=== PATIENT | male | born 1990 | race Two or more races ===

== ENCOUNTER → 2019-11-16 | Emergency (ER) | payer SELFPAY ==
[~2019-11-16] VITALS: Ht 177.8 cm; Wt 90.7 kg
[~2019-11-16] MED LIST: BACITRACIN INJ 50000 UNIT VIAL TOP ONE; BACITRACIN TOP OINT 1 UD PKG TOP ONE; IOHEXOL 300 MG/ML 100ML BOTTLE IJ ONE; LIDOCAINE W/ EPINEPHRINE 1 % INJ 30ML ONE; LIDOCAINE W/ EPINEPHRINE 1% 20ML VIAL ONE; LIDOCAINE W/ EPINEPHRINE 1% 20ML VIAL SC ONE; MORPHINE SULF INJ 2 MG/ML SYRINGE 1ML IV ONE; ONDANSETRON HCL 4 MG/2 ML VIAL IV ONE; SODIUM CHLORIDE 0.9% 1,000 ML IV ONE; TETANUS-DIPTH-ACEL PERTUSSIS 0.5ML SYR Tdap IM ONE; cefTRIAXone 1GM/50ML D5W 50 ML IV ONE
[2019-11-16 19:36] LABS: Basophils # (auto) 0 10 ^3/uL (0-0.2); Basophils % (auto) 0.4 % (0.0-2.0); Eosinophils # (auto) 0 10 ^3/uL (0-0.8); Eosinophils % (auto) 0.4 % (0.0-7.0); Hematocrit 46.4 % (41.0-53.0); Hemoglobin 15.8 g/dL (13.5-17.5); Lymphocytes % (auto) 19.2 % (10.0-50.0); Mean Corpuscular Hemoglobin 30.1 pg (28.0-32.0); Mean Corpuscular Hgb Conc. 34.1 g/dL (32.0-36.0); Mean Corpuscular Volume 88.1 fL (80.0-100.0); Monocytes # (auto) 0.8 10 ^3/uL (0-1.3); Monocytes % (auto) 7.4 % (0.0-12.0); Neutrophils # (auto) 7.6 10 ^3/uL (1.6-8.6); Neutrophils % (auto) 72.6 % (37.0-80.0); Nucleated Red Blood Cells % 0.1 %; Platelet Count (auto) 226 10^3/uL (140-450); Red Blood Cells 5.27 10^6/uL (4.5-5.90); Red Cell Distribution Width 13.3 % (11.8-14.3); White Blood Cell 10.4 10^3/uL (4.4-10.8)
[2019-11-16 19:49] LABS: INR 1.02 (0.9-1.15); Partial Thromboplastin Time 24.4 sec (23.64-32.05)
[2019-11-16 19:53] LABS: Alanine Aminotransferase 92 U/L (16-61); Albumin 3.7 g/dL (3.4-5.0); Anion Gap 6 (5-15); Aspartate Aminotransferase 36 U/L (15-37); BUN/Creatinine Ratio 8.9; Blood Urea Nitrogen 11 mg/dL (7-18); Calcium 8.3 mg/dL (8.5-10.1); Carbon Dioxide 26 mmol/L (21-32); Chloride 109 mmol/L (98-107); GFR African American 89 mL/min; GFR Non-African American 74 mL/min; Glucose 128 mg/dL (74-106); Magnesium 2.2 mg/dL (1.6-2.6); Potassium 3.7 mmol/L (3.5-5.1); Sodium 141 mmol/L (136-145)
[2019-11-16 19:58] LABS: Alkaline Phosphatase 113 U/L (45-117); Bilirubin, Total 0.4 mg/dL (0.2-1.0); Total Protein 7.5 g/dL (6.4-8.2)
[2019-11-16 21:00] VITALS: BP 137/77
== END | disposition home or self-care (01) ==
LOC: ER 18:25 → EDBD 18:25
DX: S22.42XA Multiple fractures of ribs, left side, initial encounter for closed fracture (principal); S71.112A Laceration without foreign body, left thigh, initial encounter; S30.1XXA Contusion of abdominal wall, initial encounter; V86.59XA Driver of other special all-terrain or other off-road motor vehicle injured in nontraffic accident, initial encounter; Y93.89 Activity, other specified; Y92.89 Other specified places as the place of occurrence of the external cause; Y99.8 Other external cause status
CPT/HCPCS: 12005; 36415; 70450; 71260; 72125; 74177; 80053; 83735; 83880; 84443; 84484; 85025; 85379; 85610; 85730; 90471; 90715; 93005; 96365; 96372; 96375; 99285; J0696; J2001; J2270; J2405; Q9967

== ENCOUNTER 2019-11-28 15:03 | Inpatient (IN) | payer MEDICAID, OTHER ==
[~2019-11-28] VITALS: Ht 170.2 cm; Wt 105.6 kg
[2019-11-28] MEDS ORDERED: cefTRIAXone 1GM/50ML D5W 50 ML IV ONE (15:30)
[2019-11-28] MEDS ORDERED: CLINDAMYCIN 600MG IV 50 ML IV ONE (15:30)
[2019-11-28] MEDS ORDERED: IOHEXOL 350 MG/ML 100ML IJ ONE (16:03)
[2019-11-28 16:22] LABS: Basophils # (auto) 0 10 ^3/uL (0-0.2); Basophils % (auto) 0.3 % (0.0-2.0); Eosinophils # (auto) 0.1 10 ^3/uL (0-0.8); Eosinophils % (auto) 0.9 % (0.0-7.0); Hematocrit 47.2 % (41.0-53.0); Hemoglobin 15.7 g/dL (13.5-17.5); Lymphocytes # (auto) 2.1 10 ^3/uL (0.4-5.4); Lymphocytes % (auto) 26.7 % (10.0-50.0); Mean Corpuscular Hemoglobin 29.7 pg (28.0-32.0); Mean Corpuscular Hgb Conc. 33.2 g/dL (32.0-36.0); Mean Corpuscular Volume 89.4 fL (80.0-100.0); Monocytes # (auto) 0.5 10 ^3/uL (0-1.3); Monocytes % (auto) 6.4 % (0.0-12.0); Neutrophils # (auto) 5.1 10 ^3/uL (1.6-8.6); Neutrophils % (auto) 65.7 % (37.0-80.0); Platelet Count (auto) 355 10^3/uL (140-450); Red Blood Cells 5.28 10^6/uL (4.5-5.90); Red Cell Distribution Width 13.5 % (11.8-14.3); White Blood Cell 7.7 10^3/uL (4.4-10.8)
[2019-11-28 16:28] LABS: Albumin 3.7 g/dL (3.4-5.0); BUN/Creatinine Ratio 10.3; Calcium 8.8 mg/dL (8.5-10.1); Potassium 3.4 mmol/L (3.5-5.1)
[2019-11-28 16:30] LABS: Bilirubin, Total 0.6 mg/dL (0.2-1.0); Total Protein 8.1 g/dL (6.4-8.2)
[2019-11-28] MEDS ORDERED: LACTATED RINGER'S 1,000 ML IV ONE (18:15)
[2019-11-28] MEDS ORDERED: VANCOMYCIN PER PHARMACY 0 MG IV SCH (18:15)
[2019-11-28] MEDS ORDERED: NITROGLYCERIN 0.4 MG SL TAB SL PRN ×2 (18:15→21:00)
[2019-11-28] MEDS ORDERED: MORPHINE SULF INJ 2 MG/ML SYRINGE 1ML IV PRN ×3 (18:15→21:00)
[2019-11-28] MEDS ORDERED: VANCOMYCIN 1GM/250ML 250 ML IV ONE (18:30)
--- NOTE | 2019-11-28 19:45 | NUR ---
Telemetry admit from [facility] admitted to Telemetry unit. Patient oriented to Reg Singleton, primary RN, unit, room, bed, and unit policies regarding patient care and visiting hours. Patient now on continuous telemetry monitoring, tele box #56 and telemetry reading on arrival to unit is SR 66. Patient has been weighed by bedscale and encouraged to call if they need something. All questions and concerns addressed, patient verbalized understanding.
[2019-11-28] MEDS ORDERED: HYDR1TAB97 (20:29)
[2019-11-28] MEDS ORDERED: CEPH500C PO (20:29)
[2019-11-28] MEDS ORDERED: IBUP800T24 PO (20:29)
[2019-11-28] MEDS ORDERED: HYDROcodone-ACET 5/325MG TAB PO PRN (21:00)
[2019-11-28] MEDS ORDERED: SODIUM CHLORIDE 0.9% 1,000 ML IV SCH (21:00)
[2019-11-28] MEDS ORDERED: LORazepam 0.5 MG TAB PO PRN (21:00)
[2019-11-28] MEDS ORDERED: ONDANSETRON HCL 4 MG/2 ML VIAL IV PRN (21:00)
[2019-11-28] MEDS ORDERED: ACETAMINOPHEN 325 MG TAB PO PRN (21:00)
[2019-11-28] MEDS ORDERED: ALUM & MAG HYDROX-SIMETH LIQ(MAALOX) 30 ML PO PRN (21:00)
[2019-11-28] MEDS ORDERED: POTASSIUM CHL 20 Meq TABLET PO ONE (21:30)
[2019-11-28 22:31] LABS: Creatine Kinase IFCC 76 U/L (39-308)
[2019-11-28] MEDS: SOD CHL 0.9%/ KCL 20MEQ 1,000 ML IV SCH (23:00)
[2019-11-29 05:00] VITALS: BP 133/69
[2019-11-29] MEDS: PIPERACILLIN-TAZOB 3.375GM 100 ML IV SCH ×5 (06:00→23:35)
[2019-11-29 06:14] LABS: Basophils # (auto) 0 10 ^3/uL (0-0.2); Basophils % (auto) 0.6 % (0.0-2.0); Eosinophils # (auto) 0.1 10 ^3/uL (0-0.8); Eosinophils % (auto) 1.3 % (0.0-7.0); Hematocrit 45.7 % (41.0-53.0); Hemoglobin 14.9 g/dL (13.5-17.5); Lymphocytes # (auto) 1.6 10 ^3/uL (0.4-5.4); Lymphocytes % (auto) 24.5 % (10.0-50.0); Mean Corpuscular Hemoglobin 29.3 pg (28.0-32.0); Mean Corpuscular Hgb Conc. 32.6 g/dL (32.0-36.0); Mean Corpuscular Volume 89.9 fL (80.0-100.0); Monocytes # (auto) 0.7 10 ^3/uL (0-1.3); Monocytes % (auto) 9.9 % (0.0-12.0); Neutrophils # (auto) 4.2 10 ^3/uL (1.6-8.6); Neutrophils % (auto) 63.7 % (37.0-80.0); Nucleated Red Blood Cells % 0.1 %; Platelet Count (auto) 311 10^3/uL (140-450); Red Blood Cells 5.08 10^6/uL (4.5-5.90); Red Cell Distribution Width 13.1 % (11.8-14.3); White Blood Cell 6.6 10^3/uL (4.4-10.8)
[2019-11-29 06:30] LABS: Potassium 4.4 mmol/L (3.5-5.1)
[2019-11-29 06:35] LABS: INR 1.05 (0.9-1.15); Partial Thromboplastin Time 28.8 sec (23.0-31.2)
[2019-11-29 06:36] LABS: Albumin 3.3 g/dL (3.4-5.0); BUN/Creatinine Ratio 9.9; Calcium 8.6 mg/dL (8.5-10.1); Magnesium 2.5 mg/dL (1.6-2.6); Phosphorus 3.4 mg/dL (2.5-4.90); Total Protein 7.3 g/dL (6.4-8.2)
[2019-11-29 06:51] LABS: Cholesterol 176 mg/dL (< 200); HDL Cholesterol 25 mg/dL (40-59); LDL Cholesterol 143 mg/dL (< 100); Triglycerides 121 mg/dL (< 150)
[2019-11-29 06:53] LABS: Urine Bacteria NONE SEEN /hpf (None Seen); Urine Blood Negative /uL (Negative); Urine WBC 1 /hpf (0 - 3)
[2019-11-29 06:56] LABS: Alcohol, Urine < 3.0 mg/dL (0-10); Amphetamine Screen, Urine NEGATIVE (NEGATIVE); Barbiturate Scree,Urine NEGATIVE (NEGATIVE); Benzodiazephine Screen, Urine NEGATIVE (NEGATIVE); Cannabinoid Screen, Urine NEGATIVE (NEGATIVE); Cocaine Screen, Urine NEGATIVE (NEGATIVE); Opiate Scree,Urine NEGATIVE (NEGATIVE); Phencyclidine Screen, Urine NEGATIVE (NEGATIVE)
[2019-11-29] MEDS: SOD CHL 0.9%/ KCL 20MEQ 1,000 ML IV SCH (07:35)
--- NOTE | 2019-11-29 07:40 | NUR ---
OPENING SHIFT NOTE ASSUMED PATIENT CARE AND PATIENT NOTED TO BE SLEEPING COMFORTABLY IN BED AND WAS IN NO DISTRESS. PATIENT EASILY AWAKENED AND VOICED NO C/O PAIN OR DISCOMFORT. SHIFT ASSESSMENT DONE AND CHARTED. PLAN OF CARE, MEDICATIONS, TREATMENTS AND SAFETY DISCUSSED WITH PATIENT AND PATIENT VERBALIZED UNDERSTANDING. WILL CONTINUE TO MONITOR PATIENT.
[2019-11-29 09:00] VITALS: BP 102/64
[2019-11-29] MEDS ORDERED: POTASSIUM CHL 20 Meq TABLET PO SCH (10:00)
[2019-11-29] MEDS: VANCOMYCIN 1GM/250ML 250 ML IV SCH ×2 (10:00→21:00)
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
--- NOTE | 2019-11-29 11:00 | NUR ---
MD AT BEDSIDE DR. HANEY WAS IN TO SEE PATIENT AND MD LEFT NEW ORDERS.
--- NOTE | 2019-11-29 12:00 | NUR ---
Nutrition Assessment/consult Notes please see attached link for complete assessment Est energy needs BW [id number] kcal (23-25 kcal/kg BW), Est protein needs: 81-105 g (1.0-1.3g/kg BW r/t wounds). Will reassess prn. Addendum: 11/29/19 at [address] Amended: Links added.
[2019-11-29 13:00] VITALS: BP 121/74
[2019-11-29 16:38] VITALS: BP 131/74
--- NOTE | 2019-11-29 17:00 | NUR ---
PATIENT MADE AWARE OF PLANNED SURGERY TOMORROW AND INSTRUCTED HIM TO BE NPO AFTER MIDNIGHT AND PATIENT VERBALIZED UNDERSTANDING,
[2019-11-29 22:00] VITALS: BP 126/76
--- NOTE | 2019-11-30 00:57 | NUR ---
1899. REPORT OBTAINED ON PATIENT. 1999. PATIENT SEEN. STAYING CALM ON HIS BED. DENIED PAIN. LEFT UPPER ANTERIOR THIGH WOUND VIEWED. DRESSING SOAKED. DIRTY HENDERSON DISCHARGE DRESSING CHANGE DONE.
--- NOTE | 2019-11-30 02:55 | NUR ---
PATIENT HAS BEEN NPO POST MIDNIGHT FOR POSSIBLE SURGICAL DEBRIDMENT LEFT PROXIMAL ANTERIOR THIGH WOUND.. PATIENT WILL SIGN CONSENT ON WAKING UP.
[2019-11-30 05:00] VITALS: BP 98/61
[2019-11-30] MEDS: PIPERACILLIN-TAZOB 3.375GM 100 ML IV SCH (05:57)
--- NOTE | 2019-11-30 07:35 | NUR ---
Opening Note Received report from warehouse shift supervisor RN. Patient is awake, alert and oriented x4. No signs or symptoms of distress noted at this time. Patient denies pain at this time. Patient is NPO for possible procedure today. Reviewed plan of care with patient, patient verbalized understanding. Bed in low and locked position, call light within reach. Will continue to monitor Q1 hour and PRN.
[2019-11-30 08:00] VITALS: BP 109/69
--- NOTE | 2019-11-30 09:00 | NUR ---
Glynn swab collected Swab walked over to lab by this RN.
--- NOTE | 2019-11-30 09:02 | NUR ---
Patient taken down to pre-op
[2019-11-30] MEDS ORDERED: ceFAZolin 1GM/50ML 50 ML IV ONE (09:36)
[2019-11-30] MEDS ORDERED: SUCCINYLCHOLINE CHLORIDE 20 MG/ML 10ML VIAL IV ONE (10:28)
[2019-11-30] MEDS ORDERED: LIDOCAINE 1% (LOCAL ANESTH.) PF 5ml SDV ONE (10:28)
[2019-11-30] MEDS ORDERED: MIDAZOLAM HCL 1MG/1ML-2 ML VIAL ONE (10:30)
[2019-11-30] MEDS ORDERED: METOCLOPRAMIDE HCL 5MG/ml INJ 2ml VIAL ONE (10:30)
[2019-11-30] MEDS ORDERED: PROPOFOL 10 MG/ML 20 ML IV ONE (10:32)
[2019-11-30] MEDS ORDERED: ROCURONIUM 10MG/ML 10ML VIAL IV ONE (10:32)
[2019-11-30] MEDS ORDERED: fentaNYL CITRATE 100 MCG/2 ML VL ONE (10:53)
[2019-11-30] MEDS ORDERED: NALOXONE HCL 0.4 MG/ML VIAL IV PRN (11:00)
[2019-11-30] MEDS ORDERED: HYDROmorphone HCL 2 MG/ML VL IV PRN ×2 (11:00)
[2019-11-30] MEDS ORDERED: ONDANSETRON HCL 4 MG/2 ML VIAL IV PRN (11:00)
[2019-11-30] MEDS ORDERED: GLYCOPYRROLATE 0.2 MG/ML 1ML VIAL ONE (11:13)
[2019-11-30] MEDS ORDERED: NEOSTIGMINE 1 MG/ML INJ (10mg/10ML VIAL) ONE (11:13)
[2019-11-30 12:00] VITALS: BP 117/69
--- NOTE | 2019-11-30 12:07 | NUR ---
Patient back to room Patient is s/p debridement to left thigh. Dressing is clean, dry and intact. Patient is awake, alert and oriented x4. No signs or symptoms of distress noted at this time. Vitals signs within normal limits. Bed alarm on for safety. Bed in low and locked position, call light within reach. Will continue to monitor Q1 hour and PRN.
[2019-11-30] MEDS: VANCOMYCIN 1GM/250ML 250 ML IV SCH (12:55)
--- NOTE | 2019-11-30 15:00 | NUR ---
WOUND VAC wound care nurse at bedside applying wound vac to patients left thigh.
--- NOTE | 2019-11-30 15:12 | NUR ---
WOUND CARE NOTE: Wound care in to see patient to apply wound vac to patient's L Thigh wound per Dr. Castrejon's order. Patient undergone I&Dr of L thigh necrotic wound by Dr. Castrejon. Patient is resting in bed in Rm 284A. Patient is awake, alert and oriented. Patient's education provided regarding NPWT, verbalized understanding. Removed patient's L thigh wound dressing and packing. Cleansed patient's L thigh wound with wound NS,patted dry with gauze. Patient L thigh wound measuring 6x15 x2cm. Wound bed is red with bright red periwound, moderate serosanguineous drainage noted, no odor noted. Edema noted to patient's L thigh. Applied Sure Prep skin protectant to patricia wound and drape to protect patricia wound. Fill wound cavity with two pieces black GranuFoam. Secured foam dressing with transparent drape and applied trac pad. Connected tubings and run wound vac as ordered at 125 mmHg continuos. Good suction noted, no leak detected. New photograph of wound are taken for reference. Patient's wound care education provided, verbalized understanding. Patient tolerated well. RECOMMENDATION: Q3Days/PRN dressing change to L Thigh wound per MD order, continue with skin/wound plan of care, continue monitoring by wound care while patient is hospitalized. Addendum: 11/30/19 at 1721 by Ann Anderson RN Amended: Links added.
--- NOTE | 2019-11-30 15:58 | NUR ---
Assessment Patient is a 28-year-old male who is alert and oriented. Prior to admission patient lived home with family and functioned independently. Patient informed me he can care for his own ADL's. Per patient he does not have any medical equipment now or home oxygen. Per patient he will return home to his prior living arrangement post discharge and family will transport him home. Advised patient there is a Social Service consult for WOUND VAC. Informed patient clinical information will be faxed to [facility]. Informed patient he has the right to participate in all discharge planning. Patient verbalized understanding and agreed to discharge plan home. Patient health plan is MED-ED and does not qualify for home health service. Addendum: 11/30/19 at 1605 by MOUNIKA CORONEL Amended: Links added.
[2019-11-30 17:00] VITALS: BP 125/68
[2019-11-30] MEDS: CLINDAMYCIN 600MG IV 50 ML IV SCH ×2 (17:46→21:52)
[2019-11-30] MEDS: SOD CHL 0.45% 1,000 ML IV SCH (17:47)
--- NOTE | 2019-11-30 19:00 | NUR ---
Closing Note Report given to drug safety data management specialist RN. No signs or symptoms of distress noted at this time.
--- NOTE | 2019-11-30 19:56 | NUR ---
1899. REPORT OBTAINED ON PATIENT. HAD WOUND DEBRIDMENT DONE TODAY LEFT PROXIMAL ANTERIOR THIG. WOUND VAC APPLIED. 1929. PATIENT SEEN. AWAKE AND ALERT. DENIED PAIN. WOUND VAC IN POSITION. FUNCTIONING. MINIMAL DRAINAGE AT THIS TIME.
[2019-11-30 22:00] VITALS: BP 116/77
[2019-12-01] MEDS: SOD CHL 0.45% 1,000 ML IV SCH (00:15)
[2019-12-01 05:00] VITALS: BP 103/71
[2019-12-01] MEDS: CLINDAMYCIN 600MG IV 50 ML IV SCH ×3 (05:43→21:32)
[2019-12-01 07:48] LABS: Calcium 8.3 mg/dL (8.5-10.1); Potassium 4.1 mmol/L (3.5-5.1)
[2019-12-01 07:54] LABS: BUN/Creatinine Ratio 9.2
--- NOTE | 2019-12-01 07:55 | NUR ---
Opening Shift Note Assumed care of patient, awake and alert. No S/S of distress/SOB or pain. Instructed on POC and to call for assist PRN, will continue to monitor for changes Q1hr and PRN.
--- NOTE | 2019-12-01 08:48 | NUR ---
WOUND VAC CHECK: Wound care in for wound vac daily monitoring. Patient's L thigh wound vac dressing remain intact and connected to Ulta Vac, functioning well at 125 mmHg continuos as ordered. Good seal noted, no leak detected. About 25 mL (half of 50 mL jd) drainage noted in canister. Will continue to monitor.
[2019-12-01 09:00] VITALS: BP 117/64
[2019-12-01] MEDS ORDERED: levoFLOXacin 750MG 150 ML IV ONE (11:00)
[2019-12-01] MEDS ORDERED: LEVO750T64 PO (11:01)
[2019-12-01] MEDS ORDERED: CLIN300C8 PO (11:01)
--- NOTE | 2019-12-01 12:30 | NUR ---
COVID Test As per Dr. Townsend, patient does not have symptoms, no need to repeat COVID test.
[2019-12-01 13:00] VITALS: BP 123/70
[2019-12-01 15:19] VITALS: BP 118/69
--- NOTE | 2019-12-01 16:18 | NUR ---
D/C Planning Per Wound Nurse Ann she teach patient how to care for his own wound vac. Placed follow up called to [facility], spoke to Brennen. Per Brennen with [employer] order is pending and they will deliver Wound VAC once is clear.
--- NOTE | 2019-12-01 18:30 | NUR ---
Wound Vac Spoke with Lizzette in case management regarding patient's wound vac. She contacted the company and they are still awaiting approval. They will deliver once approval is received. Patient was notified that discharge may not be this evening as per caseworker intake.
--- NOTE | 2019-12-01 19:30 | NUR ---
Received report from the Day RN. Lowry.
--- NOTE | 2019-12-01 19:30 | NUR ---
Care endorsed to manager shift RN.
--- NOTE | 2019-12-01 20:00 | NUR ---
Complete assessment done.
--- NOTE | 2019-12-01 21:32 | NUR ---
Due meds. as scheduled given.
[2019-12-01 22:00] VITALS: BP 119/76
--- NOTE | 2019-12-01 22:30 | NUR ---
Restarted IV access @ the Right Hand G # 22. Removed old IV access @ the LAC due to pain, swelling, redness and infiltration @ the site.
--- NOTE | 2019-12-02 00:30 | NUR ---
Pt. calm, quiet and sleeping. No s/s of pain or discomfort.
--- NOTE | 2019-12-02 02:00 | NUR ---
Pt. sleeping undisturbed.
[2019-12-02 05:00] VITALS: BP 103/67
[2019-12-02] MEDS: CLINDAMYCIN 600MG IV 50 ML IV SCH ×3 (07:41→21:56)
--- NOTE | 2019-12-02 08:05 | NUR ---
OPENING SHIFT NOTE: PATIENT RESTING IN BED AWAKE. PATIENT A/OX4, RESPIRATIONS EVEN AND UNLABORED. WOUND VAC CONNECTED TO BEDSIDE MACHINE, MINIMAL DRAINAGE NOTED, PATIENT STATED HE HAS BEEN TAUGHT HOW TO USE AND CHANGE DRESSING. PATIENT UPDATED ON PLAN OF CARE. CALL LIGHT PLACED WITHIN REACH, WILL CONTINUE TO MONITOR.
[2019-12-02 09:00] VITALS: BP 119/76
--- NOTE | 2019-12-02 12:10 | NUR ---
WOUND VAC CHECK: Wound care in for wound vac daily monitoring. Patient's L thigh wound vac dressing remain intact and connected to Ulta Vac, functioning well at 125 mmHg continuos as ordered. Good seal noted, no leak detected. Estimated 75 mL serosanguineous (not reached the jd of 100 mL jd ) drainage noted in canister. Patient is awaiting Home wound vac. Patient is aware that no Home health to change his wound dressing. Patient educated on wound care, wound vac dressing change on initial application, he verbalized understanding. Wound care in to Reeducate patient. Patient able to verbalize on how he will do his Lt thigh wound dressing, beginning with hand washing, putting gloves, removal of wound vac dressing, cleaning of wound and application of new wound vac dressing. He also able to demonstrate connecting of wound dressing and wound vac tubing and run at prescribed setting of 125mmHg continuos. Will continue to monitor. Communicate with DENIA Madera, visit and reeducation of patient. Discuss plan to swap vac when it arrived for DC home and if not, tomorrow's dressing change patient to do his wound dressing in front of wound care nurse.
--- NOTE | 2019-12-02 12:20 | NUR ---
CALL FROM SUPPORTABILITY ENGINEER ADALGISA: WOUND VAC NOT TO BE DELIVERED TODAY TO BEDSIDE.
[2019-12-02 13:00] VITALS: BP 107/74
--- NOTE | 2019-12-02 13:38 | NUR ---
I called [facility] [phone] and spoke with Brian to request ETA for wound vac. Per Brian, it is still pending and she said they are waiting for additional paperwork. Faxed wound care note from 11/29 and discharge summary to [facility] [phone]. Per Brian wound vac will not be delivered today.
--- NOTE | 2019-12-02 13:41 | NUR ---
Nutrition Followup Note Wt 105.5kg Pt was with Rn at time of rounds. Pt is awaiting DC with wound vac. Pt is s/p debridement of thigh wound. Pt has a regular diet with adequate po intake aeb pt with an avg po intake of 86% x 3 days per RN note. Est energy needs BW [id number] kcal (23-25 kcal/kg BW), Est protein needs: 81-105 g (1.0-1.3g/kg BW r/t wounds). Will reassess prn. Labs: Ca 8.3L, Alb 3.3L BM: Pt with no BM noted per Rn note Skin: Bs 20 low risk, wound left thigh, full details in skin care therapist note. PES: Altered nutrition related lab values r.t current chronic medical condition aeb mild hypoalb elev LDL Comments 1) consider MVI/C bid 2) continue current plan of care Expected Outcomes/Goals: 1) pt will have better healing wounds 2) pt will have improved labs 3)F/u mod 3-5 days
[2019-12-02 17:00] VITALS: BP 95/53
--- NOTE | 2019-12-02 18:44 | NUR ---
CARE ENDORSED TO NOC RN.
--- NOTE | 2019-12-02 19:25 | NUR ---
Received report from the Day Shift RN. Dan. Initial assessment done.
--- NOTE | 2019-12-02 20:00 | NUR ---
Complete assessment done. Pt. resting, calm and quiet. Denies pain when assessed. Wound vac attached to the left thigh continuous.
--- NOTE | 2019-12-02 21:56 | NUR ---
Clindamycin 600 mg. IVPB administered to the pt. @ this time. Pt. given health teachings on the use/mechanism of actions of the antibiotic. Pt. verbalized understanding.
[2019-12-02 22:00] VITALS: BP 116/65
--- NOTE | 2019-12-03 00:15 | NUR ---
Pt. started to sleep and keep bed locked in low position with side rails up x 2 for safety. Call-light @ the bedside.
--- NOTE | 2019-12-03 02:00 | NUR ---
Pt. is sleeping and resting undisturbed. Pt. may go home once Wound vac to be taken @ home for discharge will be delivered to the pt.
--- NOTE | 2019-12-03 04:00 | NUR ---
Sleeping well. Maintained a safe and quiet environment.
[2019-12-03 06:00] VITALS: BP 103/71
[2019-12-03] MEDS: CLINDAMYCIN 600MG IV 50 ML IV SCH ×3 (06:13→22:02)
[2019-12-03 06:23] LABS: Basophils # (auto) 0 10 ^3/uL (0-0.2); Basophils % (auto) 0.5 % (0.0-2.0); Eosinophils # (auto) 0.1 10 ^3/uL (0-0.8); Eosinophils % (auto) 1.3 % (0.0-7.0); Hematocrit 46.2 % (41.0-53.0); Hemoglobin 15.7 g/dL (13.5-17.5); Lymphocytes # (auto) 1.9 10 ^3/uL (0.4-5.4); Mean Corpuscular Hemoglobin 30.1 pg (28.0-32.0); Mean Corpuscular Hgb Conc. 33.9 g/dL (32.0-36.0); Mean Corpuscular Volume 88.7 fL (80.0-100.0); Monocytes # (auto) 0.8 10 ^3/uL (0-1.3); Monocytes % (auto) 11.5 % (0.0-12.0); Neutrophils # (auto) 3.9 10 ^3/uL (1.6-8.6); Neutrophils % (auto) 58.7 % (37.0-80.0); Nucleated Red Blood Cells % 0.1 %; Platelet Count (auto) 349 10^3/uL (140-450); Red Blood Cells 5.21 10^6/uL (4.5-5.90); Red Cell Distribution Width 13.1 % (11.8-14.3); White Blood Cell 6.7 10^3/uL (4.4-10.8)
[2019-12-03 06:44] LABS: Calcium 9.1 mg/dL (8.5-10.1); Potassium 4.3 mmol/L (3.5-5.1)
[2019-12-03 06:47] LABS: BUN/Creatinine Ratio 14.9
[2019-12-03 08:00] VITALS: BP 111/67
--- NOTE | 2019-12-03 08:00 | NUR ---
OPENING SHIFT NOTE: PATIENT RESTING IN BED, A/OX4, RESPIRATIONS EVEN AND UNLABORED ON ROOM AIR. PATIENT WISHES TO GO HOME, BUT IS WILLING TO STAY FOR HOME WOUND VAC DELIVERY. CALL LIGHT WITHIN REACH, WILL CONTINUE TO MONITOR.
--- NOTE | 2019-12-03 10:54 | NUR ---
WOUND CARE: TOURIST INFORMATION OFFICER AT BEDSIDE. WOUND VAC CHANGED BY PATIENT PER RN. DENIES REQUEST FOR PAIN MEDICINE, SINCE "I WON'T HAVE ANY AT HOME."
--- NOTE | 2019-12-03 11:12 | NUR ---
WOUND CARE NOTE: Wound care in to see patient to change L Thigh wound vac dressing and to reinforce wound care teaching. Patient continue resting in bed in Rm 284A. Patient is awake, alert and oriented. Patient's denies any pain at this time. Patient reeducated regarding NPWT, verbalized understanding. Patient is willing to participate in care and willing to demonstrate wound dressing. Patient washed his hands, don gloves. Patient able to do his L thigh wound dressing with proper hand hygiene, removal of L thigh wound vac dressing and packing. Cleaning wound, applying new wound vac dressing and seal with transparent drape, application of trac pad, connecting tubings and running wound vac at prescribed set setting of 125 mmHg continuos as MD ordered. Good suction noted, no leak detected. Patient's L thigh wound has clean red wound bed with very small area at 0100 with yellow slough. Wound measuring 6x14x1.5cm. Smaller in comparison to first application of wound vac on 11/30/19. New photograph of wound are taken for reference. Patient able to tell sign and symptoms of infection and when to go back to E.D. when experienced/noted such symptoms. Patient tolerated well and eager to go home, awaiting wound vac for home. DENIA Madera is aware and will continue to communicate with soc service to follow up. RECOMMENDATION: Continuation of all wound care order prescribed by MD, continue with skin/wound plan of care, continue monitoring by wound care while patient is hospitalized. Addendum: 12/03/19 at 1704 by Ann Anderson RN Amended: Links added.
[2019-12-03 12:00] VITALS: BP 117/68
--- NOTE | 2019-12-03 16:50 | NUR ---
SPOKE WITH CASE MANAGEMENT ADALGISA VISCOSITY INSPECTOR: WOUND VAC PENDING ACCEPTANCE FROM [facility].
[2019-12-03 16:56] VITALS: BP 116/65
--- NOTE | 2019-12-03 18:44 | NUR ---
CARE ENDORSED TO NOC RN.
--- NOTE | 2019-12-03 19:25 | NUR ---
Opening Shift Note Received report form DENIA Sims, assumed care of patient. Pt AAOx4. No S/S of distress/SOB or pain. pt wound vac in place and turned on. Instructed on POC and to call for assist PRN, will continue to monitor for changes Q1hr and PRN. Bed is locked and in lowest position with rails up x2. Call light within reach.
[2019-12-03 21:00] VITALS: BP 129/77
--- NOTE | 2019-12-04 | NUR ---
Pt sleeping well. Maintained a safe and quiet environment. Bed in lowest and locked position with rails up x2. call light within reach of pt.
--- NOTE | 2019-12-04 04:00 | NUR ---
Pt sleeping well. Maintained a safe and quiet environment. Bed in lowest and locked position with rails up x2. call light within reach of pt.
[2019-12-04 05:00] VITALS: BP 101/57
[2019-12-04] MEDS: CLINDAMYCIN 600MG IV 50 ML IV SCH ×2 (05:44→14:11)
[2019-12-04 08:30] VITALS: BP 118/64
--- NOTE | 2019-12-04 08:42 | NUR ---
D/C planning Placed a follow up called to [facility] this morning at 08:30am, spoke to Ed. Per Ed they have all documents needed and WOUND VAC should be deliver today. Per Ed, Gonzalez the specialist will contact me with an ETA.
[2019-12-04 09:00] VITALS: BP 118/64
--- NOTE | 2019-12-04 09:00 | NUR ---
Patient resting comfortably in bed with no distress noted. Denies any pain at this time. Patient stable.
--- NOTE | 2019-12-04 09:03 | NUR ---
Weekend packaging sales consultant- 12/03/19-I called [employer] and spoke with Jose Luis-asked for an update on the status of the wound vac-he said it is still pending-I relayed this information to primary nurse.
--- NOTE | 2019-12-04 10:15 | NUR ---
Patient stable with Dr. Townsend and wound care nurse at bedside.
--- NOTE | 2019-12-04 10:18 | NUR ---
WOUND VAC CHECK: Wound care in for wound vac daily monitoring. Patient's L thigh wound vac dressing remain intact and connected to Ulta Vac, functioning well at 125 mmHg continuos as ordered. Good seal noted, no leak detected. 150 mL serosanguineous drainage noted in canister. Patient is awaiting for Home wound vac. Dr. Townsend at bedside to see patient.
--- NOTE | 2019-12-04 11:30 | NUR ---
Patient resting comfortably in bed with no complaint of pain. Discharge order; awaiting delivery of wound vac. Patient stable.
[2019-12-04 13:00] VITALS: BP 109/68
--- NOTE | 2019-12-04 14:13 | NUR ---
Scheduled IV abx given per order. Patient resting comfortably in bed with no distress noted. Patient stable.
--- NOTE | 2019-12-04 16:51 | NUR ---
D/C Planning Placed a follow up called at 15:00 to [facility], spoke to Jasper. Per Jasper they are pending additional documentation. Informed Jasper I spoke to Ed this morning and he had advised me everything was received and they would deliver the WOUND VAC. Per Jasper he will email Gonzalez the specialist working on this case to follow up with me. It is currently 16:54 and Gonzalez has not contact me in regards of patient WOUND VAC.
[2019-12-04 17:10] VITALS: BP 112/77
--- NOTE | 2019-12-04 17:15 | NUR ---
Patient resting quietly in bed with no complaint of pain or discomfort. Patient stable at this time.
[2019-12-04 18:40] VITALS: BP 112/77
--- NOTE | 2019-12-04 19:45 | NUR ---
pt. d/c home in stable condition, iv removed, not in distress.
== END 2019-12-04 19:45 | disposition home or self-care (01) | DRG 364 ==
LOC: ER 15:03 → TELE 15:04 → TELE-WESTW 20:16 → WEST WING 11-29 14:23
PROVIDERS: ADMIT Hospitalist; ATTEND Internal Medicine
PROC: 0JDM0ZZ Extraction of Left Upper Leg Subcutaneous Tissue and Fascia, Open Approach (ICD-10-PCS; principal; 2019-11-30 10:25)
DX: L03.116 Cellulitis of left lower limb (principal); S71.112A Laceration without foreign body, left thigh, initial encounter; S22.32XA Fracture of one rib, left side, initial encounter for closed fracture; E87.6 Hypokalemia; E78.5 Hyperlipidemia, unspecified; N17.0 Acute kidney failure with tubular necrosis; X58.XXXA Exposure to other specified factors, initial encounter; Y93.89 Activity, other specified; Y92.89 Other specified places as the place of occurrence of the external cause; Y99.8 Other external cause status; Z03.818 Encounter for observation for suspected exposure to other biological agents ruled out
CPT/HCPCS: 36415; 71045; 73701; 80048; 80053; 80061; 80202; 80307; 81001; 82550; 82565; 83036; 83605; 83735; 84100; 84484; 85025; 85610; 85730; 87040; 87077; 87081; 87086; 87186; 87205; G0378; J0330; J0690; J0696; J1956; J2250; J2543; J2704; J3490

== ENCOUNTER 2020-08-25 13:13 | Emergency (ER) | payer MEDICAID ==
[~2020-08-25] VITALS: Ht 167.6 cm; Wt 94.3 kg
[~2020-08-25 13:13] MED LIST changes: -BACITRACIN INJ 50000 UNIT VIAL TOP ONE; -BACITRACIN TOP OINT 1 UD PKG TOP ONE; +CEPH500C PO; +CLIN300C8 PO; +HYDR1TAB97; +IBUP800T26 PO; -IOHEXOL 300 MG/ML 100ML BOTTLE IJ ONE; +LEVO750T64 PO; -LIDOCAINE W/ EPINEPHRINE 1 % INJ 30ML ONE; -LIDOCAINE W/ EPINEPHRINE 1% 20ML VIAL ONE; -LIDOCAINE W/ EPINEPHRINE 1% 20ML VIAL SC ONE; -MORPHINE SULF INJ 2 MG/ML SYRINGE 1ML IV ONE; -ONDANSETRON HCL 4 MG/2 ML VIAL IV ONE; -SODIUM CHLORIDE 0.9% 1,000 ML IV ONE; -TETANUS-DIPTH-ACEL PERTUSSIS 0.5ML SYR Tdap IM ONE; -cefTRIAXone 1GM/50ML D5W 50 ML IV ONE
[2020-08-25 13:16] VITALS: BP 126/84
== END 2020-08-25 14:24 | disposition left against medical advice (07) ==
LOC: ER 13:14
DX: H57.12 Ocular pain, left eye (principal); Z53.21 Procedure and treatment not carried out due to patient leaving prior to being seen by health care provider

== ENCOUNTER 2021-09-22 15:56 | Emergency (ER) | payer OTHER, MEDICAID ==
[~2021-09-22] VITALS: Ht 172.7 cm; Wt 95.3 kg
[2021-09-22 16:08] VITALS: BP 121/92
[2021-09-22] MEDS ORDERED: traMADol HCL 50 MG TAB PO ONE (17:15)
== END 2021-09-22 20:29 | disposition home or self-care (01) ==
LOC: ER 15:56
DX: S20.211A Contusion of right front wall of thorax, initial encounter (principal); S40.021A Contusion of right upper arm, initial encounter; F17.210 Nicotine dependence, cigarettes, uncomplicated; V43.62XA Car passenger injured in collision with other type car in traffic accident, initial encounter; Y93.89 Activity, other specified; Y92.410 Unspecified street and highway as the place of occurrence of the external cause; Y99.8 Other external cause status
CPT/HCPCS: 71046; 73060; 73130